=== PATIENT | male | born 1975 | race Caucasian/White ===

== ENCOUNTER 2016-02-12 01:22 | Emergency (ER) | payer SELFPAY ==
[~2016-02-12] VITALS: Ht 172.7 cm; Wt 77.3 kg
[~2016-02-12 01:22] MED LIST: AMOXICILLIN 50500 MG PO; BACTRIM DS 8001 TAB PO; CEPHALEXIN500 M1 PO; GEODON80 MG PO; LATUDA60 MG PO; LITHIUM 30300 MG/CAP PO; NO HOME MEDICATIONS; NORCO 325 MG-51 TAB PO; SEROQUEL 200MG200 MG PO; SEROQUEL400 MG PO; SEROQUEL50 MG PO
[2016-02-12 01:57] LABS: BASO % 0.3 % (0.0-2.0); EOS # 0.1 (0.0-0.7); EOS % 0.7 % (0-4.0); GRAN # 6.3 (1.4-6.5); GRAN % 63.2 % (42.2-75.2); HEMATOCRIT 44.1 % (42.0-52.0); HEMOGLOBIN 15.1 g/dl (13.5-18.0); LYMPH # 2.7 (1.2-3.4); LYMPH % 27.2 % (20.0-51.0); MEAN CELL VOLUME 91 fl (80.0-100.0); MEAN CORPUSCULAR HEMOGLOBIN 31 pg (27.0-31.0); MEAN CORPUSCULAR HGB CONC 34 g/dl (33.0-37.0); MONO # 0.8 (0.1-0.6); MONO % 8.4 % (1.7-9.3); PLATELET COUNT 233 K/mm3 (130-400); RED BLOOD COUNT 4.86 M/mm3 (4.20-5.60); REDCELL DISTRIBUTION WIDTH-CV 13.2 % (11.5-14.5)
[2016-02-12 02:08] LABS: ALANINE AMINOTRANSFERASE 36 U/L (21-72); ALBUMIN 4.7 gm/dL (3.5-5.0); ALKALINE PHOSPHATASE 88 U/L (50-136); ANION GAP 14 mmol/L (7-16); BILIRUBIN,TOTAL 2.4 mg/dL (0.0-1.0); BLOOD UREA NITROGEN 16 mg/dL (9-20); CALCIUM 9.6 mg/dL (8.4-10.2); CARBON DIOXIDE 24 mmol/L (22-30); CHLORIDE 103 mmol/L (98-107); CREATININE, serum 0.93 mg/dL (0.66-1.25); GLUCOSE 88 mg/dL (74-106); POTASSIUM 3.7 mmol/L (3.4-5.0); SODIUM 142 mmol/L (137-145); TOTAL PROTEIN 7.9 gm/dL (6.4-8.2)
[2016-02-12 02:13] LABS: AMPHETAMINE URINE NEGATIVE; BARBITURATES URINE NEGATIVE; BENZODIAZEPINES URINE NEGATIVE; BUPRENORPHINE URINE NEGATIVE; METHADONE URINE NEGATIVE; OPIATES URINE NEGATIVE; OXYCODONE URINE NEGATIVE; PHENCYCLIDINE URINE NEGATIVE; PROPOXYPHENE URINE NEGATIVE; THC CANNABINOIDS URINE NEGATIVE
[2016-02-12 02:14] LABS: ACETAMINOPHEN < 10 ug/mL (10-30); SALICYLATE < 1.0 mg/dL
[2016-02-12 06:34] VITALS: BP 138/79; PULSE 90; TEMP 97.1
== END 2016-02-12 06:33 | disposition home or self-care (01) ==
LOC: COL.ER 01:22
PROVIDERS: Emergency Medicine
DX: F20.9 Schizophrenia, unspecified (principal); Z59.0 Homelessness

== ENCOUNTER 2016-04-16 13:01 | Emergency (ER) | payer SELFPAY ==
[~2016-04-16] VITALS: Ht 182.9 cm; Wt 56.8 kg
[2016-04-16 13:02] VITALS: BP 141/89; PULSE 109; TEMP 97
[2016-04-16] MEDS ORDERED: NORCO 325 MG-51 TAB PO (13:17)
[2016-04-16] MEDS ORDERED: PEN-VEE K500 MG PO (13:17)
== END 2016-04-16 13:29 | disposition home or self-care (01) ==
LOC: COL.ER 13:01
DX: K08.89 Other specified disorders of teeth and supporting structures (principal); F17.210 Nicotine dependence, cigarettes, uncomplicated